=== PATIENT | female | born 1965 | race African-American/Black ===

== ENCOUNTER → 2016-07-23 09:20 | Outpatient (CLI) | payer MEDICARE ==
[2015-12-13 09:24] VITALS: BMI 36.6
[~2016-07-23 09:20] MED LIST: ELIQUIS2.5 MG PO; EPCLUSA PO; HYDROCODONE-APA1 TAB PO; LACTULOSE PO; ULTRAM50 MG PO; VITAMIN D2000 UNIT PO
== END | disposition home or self-care (01) ==
LOC: D.LABREF 09:20
DX: M17.12 Unilateral primary osteoarthritis, left knee (principal); Z11.8 Encounter for screening for other infectious and parasitic diseases

== ENCOUNTER 2016-08-02 08:30 | Inpatient (IN) | payer MEDICARE ==
[~2016-08-02] VITALS: Ht 157.5 cm; Wt 90.5 kg
[2016-08-02 07:59] LABS: BASOPHILS 0.2 % (0.0-2.0); EOSINOPHILS 0.3 % (0-7); HEMATOCRIT 38.7 % (36.0-48.0); HEMOGLOBIN 12.6 g/dL (12-16); IMMATURE GRANULOCYTES 0.7 % (0-5); LYMPHOCYTES 44.2 % (15-50); MCH 28.3 pg (26.0-34.0); MCHC 32.6 g/dL (31.0-37.0); MCV 86.8 fL (80.0-100.0); MONOCYTES 7.6 % (2-11); PLATELET COUNT 158 10x3/uL (130-400); RBC 4.46 10x6/uL (4.00-5.40); RDW 13.3 % (11.5-14.5); WBC 6.1 10x3/uL (4.8-10.8)
[2016-08-02 08:01] LABS: APPEARANCE HAZY (CLEAR); BILIRUBIN NEGATIVE (NEGATIVE); COLOR YELLOW (YELLOW); GLUCOSE NEGATIVE (NEGATIVE); KETONE NEGATIVE (NEGATIVE); LEUKOCYTE ESTERASE NEGATIVE (NEGATIVE); NITRITE NEGATIVE (NEGATIVE); PH 6.5 (5.0-6.0); PROTEIN NEGATIVE (NEGATIVE); SPECIFIC GRAVITY 1.015 (1.005-1.020); UROBILINOGEN NORMAL (NORMAL)
[2016-08-02 08:10] LABS: CALC OSMOLALITY 274 mosm/kg (275-300); CALCIUM 9.2 mg/dL (8.5-10.1); CHLORIDE - SERUM 103 mmol/L (98-107); CREATININE - SERUM 0.6 mg/dL (0.6-1.3); GLUCOSE 99 mg/dL (74-106); SODIUM 138 mmol/L (136-145); UREA NITROGEN 11 mg/dL (7-18); eGFR NON AFRICAN AMERICAN > 90 mL/min (90-120)
[2016-08-02 08:25] LABS: INR 0.98 (0.85-1.17); PROTIME 12.9 SECONDS (11.6-15.0)
[2016-08-02 08:26] LABS: APTT 32.2 SECONDS (22.8-39.4)
[~2016-08-02 08:30] MED LIST changes: -ELIQUIS2.5 MG PO
[2016-08-07] VITALS (13 sets, daily range): BP systolic 91–156; BP diastolic 50–84; Ht 157.5 cm; Wt 90.5 kg
--- NOTE | 2016-08-07 10:41 | NUR ---
LEFT LEG AND FOOT WASHED WITH HIBICLENS AND ALCOHOL PRIOR TO CHLORPREP PER IRIS
--- NOTE | 2016-08-07 12:15 | NUR ---
PATIENT RECEIVED TO FLOOR FROM PACU VIA BED. A/O X4. VITAL SIGNS STABLE. SIDE RAILS UP X3. BED IN LOW POSITION. CALL LIGHT IN REACH. FAMILY PRESENT. C/O PAIN 12/03. WILL MEDICATE PER ORDERS.
--- NOTE | 2016-08-07 14:28 | NUR ---
PATIENT ALERT IN BED. VOMITED APPROXIMATELY 200CC. ZOFRAN ADMINISTERED PER PRN ORDER. FAMILY PRESENT. SIDE RAILS UP X2. BED IN LOW POSITION. CALL LIGHT IN REACH.
--- NOTE | 2016-08-07 15:11 | NUR ---
* Is the patient Alert and Oriented? Yes 0 * How many steps to enter\exit or inside your home? 0 0 * PCP Dr. Lindsay 0 * Pharm[facility] 0 * Preadmission Environment Home Alone 0 * ADLs Independent 0 * Equipment Cane 0 * List name and contact numbers for known caregivers / representatives who currently or will assist patient after discharge: Jacqueline Beckwith [phone] 0 * Additional services required to return to the preadmission environment? Yes 0 * Can the patient safely return to the preadmission environment? Yes 0 * Has this patient been hospitalized within the prior 30 days at any hospital? No 08/07/2016 15:04 DCP: Discharge Planning Patient Name: SERGE NELSON Admission Status: Elective Accout number: [id number] Admission Date: 08-07-2016 : 1965 Admission Diagnosis: Attending: SIVA Current LOS: 1 Anticipated DC Date: 08-09-2016 Planned Disposition: Outpatient PT\OT Primary Insurance: MEDICARE A & B Discharge Planning Comments: CM met with patient to assess dc plans/needs. Patient states she lives alone & was independent with all ADL's & IADL's prior to admission. She has a cane but no other DME. She uses the [employer] for transportation if family is unable to transport her. At dc, she will return home. Family members will be staying with her after discharge while she recovers. A rolling walker has been ordered through [employer] & will be delivered to the hospital prior to discharge. She has chosen [facility] for outpatient physical therapy - appt. scheduled 08/10 @ 1430. Anticipate DC 08/09. CM will follow. Customer Program Specialist: Angela Dumont
--- NOTE | 2016-08-07 16:33 | OP ---
PATIENT NAME: SERGE NELSON MEDICAL RECORD: [id number] :63 LOCATION:D.MS [id number] ADMISSION DATE:08/07/16 SURGEON: NELL HOOK MD DATE OF OPERATION: 08/07/2016 PREOPERATIVE DIAGNOSIS: Left knee degenerative joint disease. POSTOPERATIVE DIAGNOSIS: Left knee degenerative joint disease. PROCEDURE PERFORMED: Left total knee arthroplasty. SURGEON: Phoenix Hook MD. ANESTHESIA: General with a block for postop pain. TOURNIQUET TIME: 41 minutes. ESTIMATED BLOOD LOSS: Minimal. CONDITION: The patient tolerated the procedure well, was transferred to the recovery room in stable condition at termination of the procedure. INDICATIONS: This is a pleasant 51-year-old female with advanced degenerative changes of her knee. She is no longer getting resolution with therapy shots and medicines. She presents wanting a total knee arthroplasty. We discussed risks, benefits, and alternatives. She understood and wished to proceed. OPERATIVE REPORT: The patient was taken to the operating room and placed in supine position. General anesthesia was obtained. She did have the block in the preop holding area. In the operating room, the left knee was confirmed to be the correct knee. It was prepped and draped in the normal fashion. A secondary ChloraPrep and then Ioban dressing placement. This was followed by exsanguination with Porfirio wrap and elevation of tourniquet to 350. Midline incision was made followed by a medial parapatellar incision. Fat pad was excised. Medial soft tissue sleeve was elevated off the tibia. The drill was used to enter the femur. The guide was placed. A distal femoral cut was made. The femur was measured at 57.5. The rest of the distal femoral cuts were then established. I then proceeded to sublux the tibia forward, removing the remnants of the menisci and the ACL. The guide was placed. A proximal tibial cut was made. This was sized at a 63. The 63 was placed with a 57.5 femur taken through a range of motion and then marked for rotation. We then punched with a 63 tibia. I then took off the back side of the patella, measured this at 28, drilled the 3 peg holes placed all 3 trials. Components took the leg through a range of motion. This fit well with no laxity. I therefore went ahead and copiously irrigated then cemented into place a 57.5 femur, 63 tibia with a 12 poly trial and a 28 three peg hole patellar button. The leg was held in extension while the cement dried. Once the cement was dried, she was copiously irrigated, following which the final poly was placed, which was a 12. I then irrigated again, then closed with a #1 barbed PDS followed by 2-0 Vicryl, then dottie. Placed in a soft dressing and awakened and transferred to the recovery room in stable condition, having tolerated the procedure well. TRANSINT:[id number] Voice Confirmation ID: [id number] DOCUMENT ID: [id number] OPERATIVE REPORT [id number] SERGE NELSON, NELL LANZA MD at 1633 CC: [id number] DICTATION DATE: 08/07/16 1127 PURCHASER: 08/07/16 1546 ADM IN [facility] [address] [id number]
--- NOTE | 2016-08-07 16:50 | NUR ---
PATIENT ALERT IN BED WITH FAMILY PRESENT. SCHEDULED MEDICATION ADMINISTERED WELL PRN OXY IR. DENIES FURTHER NEEDS. SIDE RAILS UP X2. BED IN LOW POSITION. CALL LIGHT IN REACH.
--- NOTE | 2016-08-07 18:00 | NUR ---
LEFT LEG PLACED IN CPM. ICE PACK TO KNEE. FAMILY PRESENT. SIDE RAILS UP X3. BED IN LOW POSITION. CALL LIGHT IN REACH. FAMILY PRESENT.
[2016-08-08] VITALS: BP 129/70
--- NOTE | 2016-08-08 02:03 | NUR ---
REC;D AT WALKING ROUNDS IN BED,FAMILY AT BEDSIDE. ACEWRAP DRSG. DRY AND INTACT TO RT. KNEE ICE IN PLACE.TOES VISIBLE WIGGLES WITHOUT DIFFICULTY.PEDAL PULSE PRESENT. WILL CONTINUE TO MONITOR FOR ANY CHGES. IN NEUROVASCULAR STATUS AND FOLLOW CURRENT PLAN OF CARE
[2016-08-08 04:00] VITALS: BP 124/67
[2016-08-08 06:19] LABS: BASOPHILS 0 % (0.0-2.0); EOSINOPHILS 0 % (0-7); HEMATOCRIT 36.7 % (36.0-48.0); HEMOGLOBIN 11.7 g/dL (12-16); IMMATURE GRANULOCYTES 0.3 % (0-5); LYMPHOCYTES 19.5 % (15-50); MCH 27.7 pg (26.0-34.0); MCHC 31.9 g/dL (31.0-37.0); MEAN PLATELET VOLUME 11.2 fL (7.4-10.4); MONOCYTES 9.5 % (2-11); NEUTROPHILS 70.7 % (40-80); PLATELET COUNT 170 10x3/uL (130-400); RBC 4.22 10x6/uL (4.00-5.40); RDW 13.5 % (11.5-14.5); WBC 9.2 10x3/uL (4.8-10.8)
[2016-08-08 06:30] LABS: ALBUMIN 3.2 g/dL (3.4-5.0); ALKALINE PHOSPHATASE 57 U/L (46-116); ALT (SGPT) 34 U/L (10-68); BILIRUBIN - TOTAL 0.25 mg/dL (0.2-1.3); CALC OSMOLALITY 273 mosm/kg (275-300); CARBON DIOXIDE 26.7 mmol/L (21.0-32.0); CHLORIDE - SERUM 102 mmol/L (98-107); CREATININE - SERUM 0.8 mg/dL (0.6-1.3); GLUCOSE 117 mg/dL (74-106); POTASSIUM - SERUM 4.2 mmol/L (3.5-5.1); PROTEIN - SERUM 7.7 g/dL (6.4-8.2); SODIUM 137 mmol/L (136-145); UREA NITROGEN 10 mg/dL (7-18); eGFR NON AFRICAN AMERICAN 80 mL/min (90-120)
--- NOTE | 2016-08-08 07:15 | NUR ---
REPORT RECEIVED FROM HOSTING ENGINEER NURSE. CALL LIGHT IN REACH.
[2016-08-08 08:20] VITALS: BP 138/72
--- NOTE | 2016-08-08 08:30 | NUR ---
ASSESSMENT COMPLETED. AM MEDS ADMINISTERED. SCDs TO BLE. ICE PACK FILLED AND PLACED TO LEFT KNEE. BED ALARM ON. CALL LIGHT IN REACH. WILL CONTINUE WITH PLAN OF CARE.
--- NOTE | 2016-08-08 09:10 | NUR ---
AMBULATED TO DOOR THEN TO CHAIR PER PT. TOLERATED WELL.
--- NOTE | 2016-08-08 10:12 | NUR ---
SITTING IN THE CHAIR PER PT. OXY IR 10 MG PO PER C/O PAIN OF 7. PLACED ON AND OFF BEDPAN. CALL LIGHT IN REACH.
--- NOTE | 2016-08-08 11:20 | NUR ---
UP IN CHAIR PER PHYSICAL THERAPY AT THIS TIME. FAMILY AT BEDSIDE. RATES PAIN AT 10/10. ENCOURAGED PT TO ALLOW TIME FOR PAIN MEDICATION TO TAKE EFFECT. PROVIDED PT WITH FRESH [place] OVER ICE. CALL LIGHT IN REACH, WILL CONTINUE WITH PLAN OF CARE.
--- NOTE | 2016-08-08 12:14 | NUR ---
STATES PAIN HAS INCREASED TO AN 8. SCHEDULED TYLENOL ADMINISTERED. TOO SOON FOR OTHER PAIN MEDS.
[2016-08-08 12:28] VITALS: BP 135/73
--- NOTE | 2016-08-08 13:43 | NUR ---
WALKED 125 FEET IN HALLWAY WITH PHYSICAL THERAPY.
--- NOTE | 2016-08-08 14:18 | NUR ---
C/O PAIN OF 10. OXY IR 10 MG PO. IV TO LEFT HAND FLUSHED WITH NS.
[2016-08-08 15:47] VITALS: BP 118/73
--- NOTE | 2016-08-08 16:55 | NUR ---
SPOKE EXTENSIVELY WITH PATIENT AND DAUGHTER ABOUT DISCHARGE.
--- NOTE | 2016-08-08 18:00 | NUR ---
CPM TURNED ON. ICE TO LEFT KNEE. OXY IR AND TYLENOL PO. NO CHANGES IN INITIAL ASSESSMENT. SCDs TO BLE. CALL LIGHT IN REACH. WILL CONTINUE WITH PLAN OF CARE.
--- NOTE | 2016-08-08 19:00 | NUR ---
PATIENT IN BED ON CPM. HOB 20 DEGREES. AAOX4. RR EVEN AND UNLABORED. 0 S/S OF DISTRESS. DENIES PAIN AT THIS TIME. IV TO LEFT HAND PATENT WITH NO REDNESS OR SWELLING. DRESSING TO LEFT KNEE CDI. ICE TO LEFT KNEE. SCD'S ON. B/A ON PER ORTHO PROTOCOL. SRX2. BED LOW. CALL LIGHT WITHIN REACH.
[2016-08-08 20:00] VITALS: BP 131/73
--- NOTE | 2016-08-08 22:05 | NUR ---
PATIENT OFF CPM. ASSISTED TO BSC AND BABK TO BED. ASSESSMENT COMPLETE. NIGHTTIME MEDS GIVEN. OXY IR GIVEN FOR PAIN. BENADRYL GIVEN FOR ITCHING. WILL REASSESS.
[2016-08-09] VITALS: BP 127/68
--- NOTE | 2016-08-09 01:06 | NUR ---
PATIENT SLEEPING WITH NO DISTRESS NOTED. CALL LIGHT WITHIN REACH.
--- NOTE | 2016-08-09 01:45 | NUR ---
PATIENT STATES PAIN IS A 10/10. OXY IR GIVEN. ICE APPLIED TO KNEE.
[2016-08-09 04:00] VITALS: BP 164/82
[2016-08-09 05:50] LABS: BASOPHILS 0.1 % (0.0-2.0); EOSINOPHILS 0.1 % (0-7); HEMATOCRIT 34.7 % (36.0-48.0); HEMOGLOBIN 11.2 g/dL (12-16); IMMATURE GRANULOCYTES 0.3 % (0-5); LYMPHOCYTES 25.4 % (15-50); MCH 27.8 pg (26.0-34.0); MCHC 32.3 g/dL (31.0-37.0); MCV 86.1 fL (80.0-100.0); MONOCYTES 8.4 % (2-11); NEUTROPHILS 65.7 % (40-80); PLATELET COUNT 147 10x3/uL (130-400); RBC 4.03 10x6/uL (4.00-5.40); RDW 13.3 % (11.5-14.5); WBC 9.8 10x3/uL (4.8-10.8)
[2016-08-09 05:51] LABS: ALBUMIN 3.2 g/dL (3.4-5.0); ALKALINE PHOSPHATASE 60 U/L (46-116); ALT (SGPT) 28 U/L (10-68); CALC OSMOLALITY 268 mosm/kg (275-300); CALCIUM 8.7 mg/dL (8.5-10.1); CARBON DIOXIDE 26.4 mmol/L (21.0-32.0); CHLORIDE - SERUM 99 mmol/L (98-107); CREATININE - SERUM 0.7 mg/dL (0.6-1.3); GLUCOSE 133 mg/dL (74-106); POTASSIUM - SERUM 3.7 mmol/L (3.5-5.1); SODIUM 134 mmol/L (136-145); UREA NITROGEN 9 mg/dL (7-18); eGFR NON AFRICAN AMERICAN > 90 mL/min (90-120)
--- NOTE | 2016-08-09 07:15 | NUR ---
REPORT RECEIVED FROM PARACHUTE MARKER NURSE. CALL LIGHT IN REACH.
[2016-08-09 08:15] VITALS: BP 151/77
--- NOTE | 2016-08-09 08:56 | NUR ---
ASSESSMENT COMPLETED. AM MEDS ADMINISTERED. SCDs TO BLE. BED ALARM ON. CALL LIGHT IN REACH. WILL CONTINUE WITH PLAN OF CARE. DOES NOT WANT OXY IR.
--- NOTE | 2016-08-09 09:24 | NUR ---
AMBULATED 125 FEET IN HALLWAY WITH PHYSICAL THERAPY. SPOKE WITH POOJA ABOUT PATIENT WANTING DIFFERENT PAIN MEDS. NEW ORDERS PUT IN.
--- NOTE | 2016-08-09 09:28 | NUR ---
SITIING IN CHAIR. MORPHINE PO PER ORDER. CALL LIGHT IN REACH.
--- NOTE | 2016-08-09 11:10 | NUR ---
TYLENOL PO. FAMILY IN ROOM. CALL LIGHT IN REACH.
[2016-08-09 12:31] VITALS: BP 149/84
--- NOTE | 2016-08-09 12:40 | NUR ---
NO NEEDS VOICED. CALL LIGHT IN REACH.
--- NOTE | 2016-08-09 14:09 | NUR ---
QUIET IN ROOM AT PRESENT DENIES ANY NEEDS AT PRESENT.
--- NOTE | 2016-08-09 14:53 | NUR ---
IV FLUSHED WITH NS. OXY IR WITH BENADRYL PO. CALL LIGHT IN REACH.
[2016-08-09 16:02] VITALS: BP 153/81
--- NOTE | 2016-08-09 16:13 | NUR ---
08/09/2016 16:10 DCP: Discharge Planning Anticipate DC tomorrow. OP PT appt. rescheduled for 08/13 @ 1115 @ [facility]. CM will follow.
--- NOTE | 2016-08-09 18:33 | NUR ---
REQUESTED PAIN MEDS SO OXY IR AND TYLENOL SCANNED BUT THEN PATIENT REFUSED OXY IR BECAUSE BENADRYL WASN'T DUE UNTIL 2029. NO OTHER CHANGES IN INITIAL ASSESSMENT. SCDs TO BLE. CPM ON. BED ALARM ON. CALL LIGHT IN REACH. WILL CONTINUE WITH PLAN OF CARE.
--- NOTE | 2016-08-09 19:00 | NUR ---
PATIENT IN BED ON CPM. HOB 20 DEGREES. AAOX4. RR EVEN AND UNLABORED. 0 S/S OF DISTRESS. STATES PAIN IS A 9/10. IV TO LEFT HAND PATENT WITH NO REDNESS OR SWELLING. DRESSING TO LEFT KNE CDI. SCD'S ON. B/A ON PER ORTHO PROTOCOL. SRX2. BED LOW. CALL LIGHT WITHIN REACH.
[2016-08-09 20:00] VITALS: BP 169/85
--- NOTE | 2016-08-09 21:00 | NUR ---
ASSESSMENT COMPLETE. NIGHTTIME MEDS GIVEN. NORCO GIVEN FOR PAIN PER ORDER. MS CONTIN HELD. EXPLAINED TO PATIENT THAT THEY DID NOT NEED TO BE GIVEN AT THE SAME TIME. PATIENT OK WITH THIS.
[2016-08-10] VITALS: BP 134/83
--- NOTE | 2016-08-10 03:07 | NUR ---
PATIENT SLEEPING WITH NO DISTRESS NOTED. CALL LIGHT WITHIN REACH.
[2016-08-10 04:00] VITALS: BP 134/80
[2016-08-10 06:28] LABS: BASOPHILS 0.1 % (0.0-2.0); EOSINOPHILS 0.4 % (0-7); HEMATOCRIT 35.2 % (36.0-48.0); HEMOGLOBIN 11.4 g/dL (12-16); IMMATURE GRANULOCYTES 0.5 % (0-5); LYMPHOCYTES 28.8 % (15-50); MCH 27.8 pg (26.0-34.0); MCHC 32.4 g/dL (31.0-37.0); MCV 85.9 fL (80.0-100.0); MEAN PLATELET VOLUME 11.1 fL (7.4-10.4); MONOCYTES 9.4 % (2-11); NEUTROPHILS 60.8 % (40-80); PLATELET COUNT 157 10x3/uL (130-400); RDW 13.3 % (11.5-14.5); WBC 9.2 10x3/uL (4.8-10.8)
[2016-08-10 06:59] LABS: ALBUMIN 3.2 g/dL (3.4-5.0); ALKALINE PHOSPHATASE 57 U/L (46-116); ALT (SGPT) 26 U/L (10-68); BILIRUBIN - TOTAL 0.49 mg/dL (0.2-1.3); CALC OSMOLALITY 271 mosm/kg (275-300); CALCIUM 9.2 mg/dL (8.5-10.1); CHLORIDE - SERUM 100 mmol/L (98-107); CREATININE - SERUM 0.6 mg/dL (0.6-1.3); GLUCOSE 125 mg/dL (74-106); POTASSIUM - SERUM 3.6 mmol/L (3.5-5.1); PROTEIN - SERUM 7.8 g/dL (6.4-8.2); SODIUM 136 mmol/L (136-145); UREA NITROGEN 9 mg/dL (7-18); eGFR NON AFRICAN AMERICAN > 90 mL/min (90-120)
--- NOTE | 2016-08-10 07:15 | NUR ---
REPORT RECEIVED FROM EXECUTIVE ADVISOR NURSE. CALL LIGHT IN REACH.
--- NOTE | 2016-08-10 07:48 | NUR ---
ASSESSMENT COMPLETED. SCDs TO BLE. CPM ON. BED ALARM ON. NORCO PO. CALL LIGHT IN REACH. WILL CONTINUE WITH PLAN OF CARE.
[2016-08-10 08:09] VITALS: BP 139/87
--- NOTE | 2016-08-10 09:26 | NUR ---
IN CHAIR. AM MEDS ADMINISTERED. CALL LIGHT IN REACH.
--- NOTE | 2016-08-10 11:48 | NUR ---
PT. AOX4 RESP EVEN AND NONLABORED LUNG SOUNDS CLEAR IV TO LEFT HAND PATENT AND INTACT AND SALINE LOCKED PT. DENIES NEEDS AT THIS TIME. ICE TO LEFT KNEE SI WITH DRESSING INTACT AT THIS TIME WILL CONTINUE TO MONITOR
[2016-08-10] MEDS ORDERED: ELIQUIS2.5 MG PO (12:07)
[2016-08-10] MEDS ORDERED: HYDROCODONE-APA1 TAB PO (12:08)
--- NOTE | 2016-08-10 13:59 | NUR ---
NORCO 2 P PER C/O PAIN. CALL LIGHT IN REACH.
--- NOTE | 2016-08-10 15:08 | NUR ---
IV DC'D WITH TIP INTACT. DC INSTRUCTIONS EXPLAINED TO PATIENT. VERBALIZED UNDERSTANDING. RX FOR NORCO HANDED TO PATIENT. DRSG ALSO CHANGED.
--- NOTE | 2016-08-10 15:26 | NUR ---
CM REASSESSMENT NOTE: PATIENT IS DISCHARGING HOME TODAY WITH FAMILY DRIVING HOME. PATIENT HAS OP APPT SET UP AND DENIED ANY OTHER NEEDS. PATIENT HAS DME AT HOME.
--- NOTE | 2016-08-10 16:08 | NUR ---
DC'D TO VEHICLE VIA WC WITH BROTHER.
--- NOTE | 2016-08-14 12:58 | DS ---
PATIENT:SERGE NELSON :63 MEDICAL RECORD: [id number] DISCHARGE SUMMARY ADMISSION DATE: 08/07/16 DISCHARGE DATE: 08/10/16 DATE OF ADMISSION: 08/07/2016 DATE OF DISCHARGE: 08/10/2016 ADMITTING DIAGNOSIS: Left knee degenerative joint disease. DISCHARGE DIAGNOSES: Left knee degenerative joint disease plus postoperative acute blood loss anemia. HISTORY: A pleasant 51-year-old female with advanced degenerative changes of her knee. She presented to the hospital and underwent a left total knee arthroplasty. She did well with the procedure. She is at this juncture discharged to home to continue on post-total knee arthroplasty protocol. She can be on Eliquis for anticoagulation therapy and Waverly for pain. She is to see me back in the office in about 10 days. She is to keep her dressing clean and dry at that time. She is to call if there is any problem. TRANSINT:[id number] Voice Confirmation ID: [id number] DOCUMENT ID: [id number] NELL BOND MD at 1258 CC: [id number] DICTATION DATE: 08/10/16 1210 AREA CAPTAIN: 08/11/16 0246 DIS IN 08/10/[id number] [place] [address]
== END 2016-08-10 16:09 | disposition home or self-care (01) | DRG 470 ==
LOC: D.SDCHOLD 08-07 06:22 → D.MS 08-07 06:22 → D.SDCHOLD 08-07 08:30 → D.MS 08-07 12:16 → D.SDCHOLD 08-07 12:35 → D.MS 08-10 16:09
PROVIDERS: Family Medicine; ADMIT Orthopaedic Surgery Sports Medicine
PROC: 0SRD0J9 Replacement of Left Knee Joint with Synthetic Substitute, Cemented, Open Approach (ICD-10-PCS; principal; 2016-08-07 09:15)
DX: M17.12 Unilateral primary osteoarthritis, left knee (principal); D62 Acute posthemorrhagic anemia; B18.2 Chronic viral hepatitis C; I25.10 Atherosclerotic heart disease of native coronary artery without angina pectoris; Z95.5 Presence of coronary angioplasty implant and graft

== ENCOUNTER 2016-11-20 08:51 | Emergency (ER) | payer MEDICARE ==
[2016-08-07 12:57] VITALS: BMI 36.5
[~2016-11-20 08:51] MED LIST changes: +ELIQUIS2.5 MG PO
== END 2016-11-20 11:00 | disposition home or self-care (01) ==
LOC: D.ER 08:51
DX: M79.662 Pain in left lower leg (principal); B19.20 Unspecified viral hepatitis C without hepatic coma

== ENCOUNTER → 2017-02-14 15:07 | Outpatient (CLI) | payer MEDICARE, MEDICAID ==
[2016-08-07 12:57] VITALS: BMI 36.5
[2017-02-14 15:49] LABS: BASOPHILS 0.2 % (0-2); EOSINOPHILS 0.7 % (0-7); HEMATOCRIT 37.7 % (36.0-48.0); IMMATURE GRANULOCYTES 0.4 % (0-5); LYMPHOCYTES 48.4 % (15-50); MCHC 31.8 g/dL (31.0-37.0); MCV 87.9 fL (80.0-100.0); MONOCYTES 7.9 % (2-11); NEUTROPHILS 42.4 % (40-80); PLATELET COUNT 148 10x3/uL (130-400); RBC 4.29 10x6/uL (4.00-5.40); RDW 14.6 % (11.5-14.5); WBC 5.4 10x3/uL (4.8-10.8)
[2017-02-14 16:52] LABS: ERYTHROCYTE SEDIMENTATION RATE 22 mm/hr (0-30)
== END | disposition home or self-care (01) ==
LOC: D.LABREF 15:07
PROVIDERS: Orthopaedic Surgery
DX: Z96.659 Presence of unspecified artificial knee joint (principal)

== ENCOUNTER → 2017-02-21 14:06 | Outpatient (CLI) | payer MEDICARE, MEDICAID ==
[2016-08-07 12:57] VITALS: BMI 36.5
== END | disposition home or self-care (01) ==
LOC: D.CT 14:06
DX: Z96.659 Presence of unspecified artificial knee joint (principal)

== ENCOUNTER 2018-02-25 08:12 | Day surgery (SDC) | payer MEDICARE, MEDICAID ==
[~2018-02-25] VITALS: Ht 157.5 cm; Wt 90.9 kg
--- NOTE | ~2018-02-25 | HP ---
PATIENT: SERGE NELSON MEDICAL RECORD: [id number] ACCOUNT: [id number] LOCATION:NAHID : 63 ADMISSION DATE: 02/25/18 PCP: ELOY CAVAZOS MD HISTORY AND PHYSICAL EXAMINATION CHIEF COMPLAINT: Here for surveillance colonoscopy. HISTORY OF PRESENT ILLNESS: The patient has a history of colon polyps. I performed her colonoscopy in the past. The risks, possible complications and alternatives to the procedure were explained to the patient. She elects to proceed. SOCIAL HISTORY: Nonsmoker. PAST MEDICAL AND SURGICAL HISTORY: Coronary artery disease, hypertension, history of hepatitis C; however, she has been treated with Harvoni, coronary stents times 2, myocardial infarction. PHYSICAL EXAMINATION: GENERAL: The patient does not appear acutely ill. She does not appear chronically ill. VITAL SIGNS: Reviewed. The entire physical examination was performed with the presence of a female nurse. CARDIOVASCULAR: Regular rhythm. PULMONARY: Nonlabored. ABDOMEN: No peritonitis with movement. EXTREMITIES: No peripheral cyanosis. INTEGUMENT: No ulcerations. IMPRESSION: History of colon polyps for surveillance colonoscopy. PLAN: Surveillance colonoscopy. TRANSINT:[id number] Voice Confirmation ID: [id number] DOCUMENT ID: [id number] FELISA DUPONT MD at 1017 CC: VALENTIN MACIAS MD [id number] DICTATION DATE: 02/25/18 1227 CLINICAL LABORATORY SCIENCE PROFESSOR: 02/25/[address] [facility] 02/25/[id number] [id number]
--- NOTE | ~2018-02-25 | OP ---
PATIENT NAME: SERGE NELSON MEDICAL RECORD: [id number] :63 LOCATION:D.OPS ADMISSION DATE: SURGEON: FELISA DUPONT MD DATE OF OPERATION: 02/25/2018 PREOPERATIVE DIAGNOSIS: History of colon polyps, in need of surveillance colonoscopy. POSTOPERATIVE DIAGNOSIS: History of colon polyps, in need of surveillance colonoscopy, with one new colon polyp, sessile, 5 x 6 mm. PROCEDURES: 1. Total colonoscopy to cecum. 2. Hot biopsy forceps polypectomy times 1. SURGEON: Felisa Dupont MD CONSUMER ATTORNEY: None. BLOOD LOSS: Minimal. ANESTHESIA: IV sedation. COMPLICATIONS: None. The risks, possible complications, and alternatives to the procedure were explained to the patient. She elects to proceed. The discussion specifically included, but was not limited to, bleeding, requiring emergency reoperation; endoscopic perforation. ENDOSCOPIC COURSE: The patient was conveyed to endoscopy suite electively on 02/25/2018. IV sedation was induced by the anesthesia staff. The patient was placed in the Motta position. A digital rectal examination was performed. A colonoscope was inserted through the anus. It was easily advanced to the cecum. The prep was adequate. I slowly withdrew the endoscope. I irrigated and aspirated extensively. I dragged the folds. A combination of normal imaging and narrow band imaging was utilized. A small polyp was identified and was removed in its entirety utilizing the hot biopsy forceps polypectomy technique. A retroflexed view was obtained in the rectum and this did reveal enlarged internal hemorrhoids. I then unretroflexed the scope and removed it under direct vision. I will see the patient in my office to review the results of the biopsy. I will then plan for her next surveillance colonoscopy to take place in the GI lab in 3 years. TRANSINT:[id number] Voice Confirmation ID: [id number] DOCUMENT ID: [id number] OPERATIVE REPORT [id number] NELSON,LOFELISA RENEE MD at 1017 CC: ELOY CAVAZOS MD [id number] DICTATION DATE: 02/25/18 1307 DRY YARD WORKER: 02/25/18 1348 [facility] 02/25/18 [place] [address]
[2018-02-25 08:46] LABS: HEMATOCRIT 41.3 % (36.0-48.0); HEMOGLOBIN 13.1 g/dL (12-16); MCH 27.3 pg (26.0-34.0); MCHC 31.7 g/dL (31.0-37.0); MEAN PLATELET VOLUME 10.9 fL (7.4-10.4); RBC 4.8 10x6/uL (4.00-5.40); RDW 13.6 % (11.5-14.5); WBC 5.9 10x3/uL (4.8-10.8)
[2018-02-25 09:02] LABS: APTT 30.6 SECONDS (22.8-39.4); INR 1.05 (0.85-1.17); PROTIME 13.3 SECONDS (11.6-15.0)
[2018-02-25 09:06] LABS: ALBUMIN 3.6 g/dL (3.4-5.0); ALKALINE PHOSPHATASE 71 U/L (46-116); ALT (SGPT) 23 U/L (10-68); BILIRUBIN - TOTAL 0.26 mg/dL (0.2-1.3); CALC OSMOLALITY 269 mosm/kg (275-300); CALCIUM 8.8 mg/dL (8.5-10.1); CARBON DIOXIDE 23.8 mmol/L (21.0-32.0); CHLORIDE - SERUM 105 mmol/L (98-107); CREATININE - SERUM 0.7 mg/dL (0.6-1.3); GLUCOSE 91 mg/dL (74-106); POTASSIUM - SERUM 3.8 mmol/L (3.5-5.1); PROTEIN - SERUM 8.4 g/dL (6.4-8.2); SODIUM 136 mmol/L (136-145); UREA NITROGEN 7 mg/dL (7-18); eGFR NON AFRICAN AMERICAN > 90 mL/min (90-120)
[2018-02-25 09:23] VITALS: Ht 157.5 cm; Wt 90.9 kg
[2018-02-25] MEDS ORDERED: PRINIVIL20 MG PO (09:27)
[2018-02-25] MEDS ORDERED: OXYBUTYNIN CHLOR5 MG PO (09:28)
== END 2018-02-25 14:54 | disposition home or self-care (01) ==
LOC: D.OPS 08:12
PROVIDERS: Anesthesiology
DX: Z12.11 Encounter for screening for malignant neoplasm of colon (principal); K63.5 Polyp of colon; K64.8 Other hemorrhoids; Z86.010 Personal history of colon polyps; I25.10 Atherosclerotic heart disease of native coronary artery without angina pectoris; I10 Essential (primary) hypertension; Z95.5 Presence of coronary angioplasty implant and graft; I25.2 Old myocardial infarction; B19.20 Unspecified viral hepatitis C without hepatic coma; Z01.812 Encounter for preprocedural laboratory examination

== ENCOUNTER 2020-07-21 12:43 | Emergency (ER) | payer MEDICARE, MEDICAID ==
[~2020-07-21] VITALS: Ht 157.5 cm; Wt 95.5 kg
[~2020-07-21 12:43] MED LIST changes: +OXYBUTYNIN CHLOR5 MG PO; +PRINIVIL20 MG PO
[2020-07-21 12:45] VITALS: Ht 157.5 cm; Wt 95.5 kg
[2020-07-21 13:13] LABS: HEMOGLOBIN 12.2 g/dL (12-16); LYMPHOCYTES 28.9 % (15-50); MCH 27.2 pg (26.0-34.0); MCHC 32.1 g/dL (31.0-37.0); MCV 84.6 fL (80.0-100.0); NEUTROPHILS 64.7 % (40-80); RBC 4.49 10x6/uL (4.00-5.40); RDW 14.5 % (11.5-14.5); WBC 8.2 10x3/uL (4.8-10.8)
[2020-07-21 13:14] LABS: PLATELET COUNT 253 10x3/uL (130-400)
[2020-07-21 13:18] LABS: APTT 31.5 SECONDS (22.8-39.4); INR 1.07 (0.85-1.17); PROTIME 12.8 SECONDS (11.6-15.0)
[2020-07-21 13:24] LABS: CALC OSMOLALITY 275 mosm/kg (275-300); CALCIUM 9.3 mg/dL (8.5-10.1); CARBON DIOXIDE 25.3 mmol/L (21.0-32.0); CHLORIDE - SERUM 102 mmol/L (98-107); CREATININE - SERUM 0.7 mg/dL (0.6-1.3); GLUCOSE 117 mg/dL (74-106); POTASSIUM - SERUM 3.5 mmol/L (3.5-5.1); SODIUM 138 mmol/L (136-145); UREA NITROGEN 11 mg/dL (7-18); eGFR NON AFRICAN AMERICAN > 90 mL/min (90-120)
[2020-07-21 13:39] LABS: ALBUMIN 3.7 g/dL (3.4-5.0); ALKALINE PHOSPHATASE 61 U/L (30-120); ALT (SGPT) 25 U/L (10-68); BILIRUBIN - TOTAL 0.37 mg/dL (0.2-1.3); CKMB 0.1 U/L (0.0-3.6); CREATINE KINASE 75 UL (21-215); MAGNESIUM - SERUM 1.8 mg/dL (1.8-2.4); PROTEIN - SERUM 8.3 g/dL (6.4-8.2)
[2020-07-21 13:41] LABS: TROPONIN-I < 0.017 ng/mL (0.000-0.060)
[2020-07-21] MEDS ORDERED: OMEPRAZOLE40 MG PO (16:55)
[2020-07-21 17:54] VITALS: BP 134/81
== END 2020-07-21 17:25 | disposition home or self-care (01) ==
LOC: D.ER 12:43
PROVIDERS: Emergency Medicine
DX: K21.9 Gastro-esophageal reflux disease without esophagitis (principal); R07.9 Chest pain, unspecified; I10 Essential (primary) hypertension

== ENCOUNTER 2020-07-23 12:12 | Emergency (ER) | payer MEDICARE, MEDICAID ==
[~2020-07-23] VITALS: Ht 157.5 cm; Wt 95.0 kg
[~2020-07-23 12:12] MED LIST changes: +OMEPRAZOLE40 MG PO
[2020-07-23 12:16] VITALS: BP 142/75; Ht 157.5 cm; Wt 95.0 kg
[2020-07-23] MEDS ORDERED: CLEOCIN HCL300 MG PO (12:44)
[2020-07-23] MEDS ORDERED: VOLTAREN75 MG PO (12:44)
== END 2020-07-23 13:35 | disposition home or self-care (01) ==
LOC: D.ER 12:12
DX: L03.317 Cellulitis of buttock (principal); I10 Essential (primary) hypertension

== ENCOUNTER → 2020-09-26 07:56 | Outpatient (CLI) | payer MEDICARE, MEDICAID ==
[2020-07-23 12:16] VITALS: BMI 38.3
[~2020-09-26 07:56] MED LIST changes: +CLEOCIN HCL300 MG PO; +VOLTAREN75 MG PO
--- NOTE | 2020-09-27 14:10 | ST ---
PATIENT:SERGE NELSON MEDICAL RECORD: [id number] SEX: F LOCATION:[facility] ORDER #: ADMISSION DATE: 09/26/20 AGE OF PATIENT: 55 REFERRING PHYSICIAN: INTERPRETING PHYSICIAN: SOFÍA LIVINGSTON MD DATE OF SERVICE: 09/26/2020 NUCLEAR STRESS TEST GATED: Gated is normal with normal wall motion. Normal EF. Calculated EF 69%. SPECT IMAGING: SPECT imaging was performed. 1. Short axis view: Short axis view shows good uptake along the anterior wall, lateral wall, and inferior wall. 2. Horizontal axis: Horizontal axis confirms good uptake along the anterior wall and inferior wall. 3. Vertical axis: Vertical axis shows good uptake along the lateral wall and septum. FINAL IMPRESSION: 1. Normal gated motion, Normal wall motion. EF 69%. 2. Normal SPECT imaging. Final impression: This scan is felt to be at low risk for any significant myocardial ischemia or previous myocardial infarction. LV function is normal. Continue risk factor modification is recommended. TRANSINT:[id number] Voice Confirmation ID: [id number] DOCUMENT ID: [id number] SOFÍA LIVINGSTON MD at 1410 CC: [id number] DICTATION DATE: 09/26/20 1644 SIEVE GRADER TENDER: 09/27/20 0836 [facility] CLI 09/26/20 [id number] [place] [address]
== END | disposition home or self-care (01) ==
LOC: D.HCCARDIO 07:56 → D.HCCECHO 08:30
PROVIDERS: ATTEND Internal Medicine Interventional Cardiology
DX: I10 Essential (primary) hypertension (principal); I20.9 Angina pectoris, unspecified